=== PATIENT | male | born 1955 | race African-American/Black ===

== ENCOUNTER 2018-07-31 21:03 | Emergency (ER) | payer BC, OTHER ==
[~2018-07-31] VITALS: Ht 188 cm; Wt 93.0 kg
[~2018-07-31 21:03] MED LIST: CIALIS20 MG PO; COUMADIN 5 MG TA5 M1 PO; COUMADIN7.5 MG PO; DIOVAN HCT 1601 EAC1 PO; DIOVAN HCT 80-1 EACH PO; LOVENOX SC; MULTIPLE VITAM1 EAC3 PO; POTASSIUM20 PO
[2018-07-31 21:59] LABS: ABSOLUTE NEUTROPHILS 0.9 thou/uL (1.4-8.2); BASOPHILS 0.8 % (0.0-2.0); EOSINOPHILS 7.2 % (0.0-3.0); HEMATOCRIT 42.1 % (42.0-52.0); LYMPHOCYTES 53.2 % (24.0-44.0); MCH 27.7 pg (26.0-34.0); MCHC 33.2 g/dL (28.0-37.0); MCV 83.5 fL (80.0-100.0); MONOCYTES 11.5 % (1.0-8.0); PLATELET COUNT 121 thou/uL (150-400); POLYS 27.3 % (36.0-66.0); RBC 5.04 mil/uL (4.50-6.00); RDW 14.3 % (10.5-14.5); WBC 3.4 thou/uL (4.0-11.0)
[2018-07-31 22:09] LABS: ANION GAP 9 mmol/L (7-16); BUN 13 mg/dL (7-18); CHLORIDE 103 mmol/L (98-107); CO2 30 mmol/L (21-32); CREATININE 1.2 mg/dL (0.7-1.3); GLUCOSE 121 mg/dL (74-106); POTASSIUM 3.6 mmol/L (3.5-5.1); SODIUM 142 mmol/L (136-145)
[2018-07-31 22:19] LABS: ALBUMIN 3.6 g/dL (3.4-5.0); SGOT 43 U/L (15-37); SGPT 69 U/L (30-65); TOTAL BILIRUBIN 0.4 mg/dL (<0.1-1.0); TOTAL PROTEIN 7.3 g/dL (6.4-8.2); TROPONIN-I <0.06 ng/mL (<0.06)
[2018-07-31 23:32] LABS: APTT 35.2 Seconds (24.5-32.8); PROTIME 21.3 Seconds (9.3-11.4)
[2018-08-01 00:30] VITALS: BP 123/72
--- NOTE | 2018-08-01 08:04 | EKG ---
[place] [address] [facility] [place] [address] ELECTROCARDIOGRAM REPORT Name: ASTER GOLDSTEIN Room #: DEP GLENNA Tompkins#: [id number] ������������������ Admission: 07/31/18 ������������������ Attend Phys: Discharge: 08/01/18 ������������������ Date of : 51 Report #: [id number] ����������������������������������������������������������������� [id number] THIS REPORT FOR: //name// [facility] ED Test Date: 2018-07-31 Test Time: 21:23:14 Pat Name: ASTER GOLDSTEIN Department: Room: Gender: M Bureau Director: THOR : 1955 Requested By: Jerrell Mullen Order Number: [id number] MD: Cheko Sparrow Measurements Intervals [place] Rate: 53 P: 47 MN: 151 QRS: -20 QRSD: 98 T: 30 QT: 407 QTc: 383 Interpretive Statements Sinus bradycardia Borderline left axis deviation No previous ECG available for comparison Electronically Signed On 08-01-2018 8:04:06 CDT by Cheko Sparrow [email or web address] ��������������������������������������������� <ELECTRONICALLY SIGNED> ���������������������������������������� By: Cheko Sparrow MD, [facility] ��������������������������������������������� 08/01/18 [id number] Cheko Sparrow MD, FACC /EPI
== END 2018-08-01 00:30 | disposition home or self-care (01) ==
LOC: ER 21:03
PROVIDERS: Emergency Medicine
DX: R06.00 Dyspnea, unspecified (principal); I10 Essential (primary) hypertension; Z86.711 Personal history of pulmonary embolism; Z79.01 Long term (current) use of anticoagulants